=== PATIENT | male | born 1965 | race African-American/Black ===

== ENCOUNTER 2021-07-09 14:07 | Emergency (ER) | payer SELFPAY, OTHER ==
[2021-07-09] MEDS ORDERED: Morphine 10 MG/ML VIAL ONE (15:11)
== END 2021-07-09 16:53 | disposition home or self-care (01) ==
LOC: CSHERS 14:07
DX: K94.23 Gastrostomy malfunction (principal)
CPT/HCPCS: 99282; J2270